=== PATIENT | female | born 1935 | race Caucasian/White ===

== ENCOUNTER 2020-12-02 18:08 | Inpatient (IN) | payer MEDICARE ==
--- NOTE | 2020-12-02 19:29 | EDM.PDOC ---
ED HPI GENERAL MEDICAL PROBLEM - General Chief Complaint: Genitourinary Problem Stated Complaint: FEVER, SHAKING, FATIGUE Time Seen by Provider: 12/02/20 18:50 Source of Information: Reports: Family () History Limitations: Reports: Altered Mental Status (Patient has a baseline of dementia) - History of Present Illness INITIAL COMMENTS - FREE TEXT/NARRATIVE: Marleen is a an 85-year-old female presenting to the ED from the [facility] for evaluation of polyuria, fever, chills, decreased appetite, and low back pain. The patient had labs done at the clinic and her evaluation was found to have a significant leukocytosis at 24.9 with a left shift. Urinalysis was performed and is positive for nitrites and leukocyte esterase with greater than 20-30 WBCs and no red cells. Patient has been febrile with a temperature of 101.3 F. said that she has been having rigors for the last day or so. The clinic called to admit her, however, because of the low back pain, the hospitalist requested that we obtain a CT of the abdomen pelvis without contrast to make sure she does not have an infected ureterolithiasis. Lower Back Pain Score (Numeric/FACES): 3 - Related Data Allergies Allergy/AdvReac Type Severity Reaction Status Date / Time Penicillins Allergy Rash Verified 12/02/20 18:51 Home Meds: Home Meds Acetaminophen [Tylenol Arthritis] 650 mg PO Q6H PRN 12/02/20 [History] Aspirin 81 mg PO DAILY 12/02/20 [History] Levothyroxine Sodium [Synthroid] 75 mcg PO DAILY 12/02/20 [History] Multivit with Calcium,Iron,Min [One Daily Women's] 1 tab PO DAILY 12/02/20 [History] Past Medical History Gastrointestinal History: Reports: GERD Genitourinary History: Reports: UTI, Recurrent Musculoskeletal History: Reports: Other (See Below) Other Musculoskeletal History: multiple compression fractures in back. Neurological History: Reports: Other (See Below) Other Neuro History: increasing dementia Endocrine/Metabolic History: Reports: Hypothyroidism Social & Family History - Tobacco Use Tobacco Use Status *Q: Never Tobacco User - Caffeine Use Caffeine Use: Reports: Coffee - Recreational Drug Use Recreational Drug Use: No ED ROS GENERAL - Review of Systems Review Of Systems: See Below Constitutional: Reports: Fever, Chills, Decreased Appetite HEENT: Reports: No Symptoms Respiratory: Reports: No Symptoms Cardiovascular: Reports: No Symptoms Endocrine: Reports: Fatigue GI/Abdominal: Reports: Abdominal Pain (Right lower quadrant and right flank), Nausea, Stool Incontinence : Reports: Dysuria, Flank Pain, Frequency, Incontinence Musculoskeletal: Reports: Back Pain (Right flank and low back) Skin: Reports: No Symptoms Neurological: Reports: Other (Baseline of dementia) Psychiatric: Reports: No Symptoms Hematologic/Lymphatic: Reports: No Symptoms Immunologic: Reports: No Symptoms ED EXAM, RENAL/ - Physical Exam Exam: See Below Exam Limited By: No Limitations General Appearance: Alert, Anxious, Mild Distress Eye Exam: Bilateral Eye: PERRL Throat/Mouth: Normal Inspection, Normal Oropharynx, No Airway Compromise Head: Atraumatic, Normocephalic Neck: Normal Inspection, Supple Respiratory/Chest: No Respiratory Distress, Lungs Clear, Normal Breath Sounds Cardiovascular: Normal Peripheral Pulses, Regular Rate, Rhythm, No Murmur, Tachy cardia GI/Abdominal: Soft, No Distention, Tender (Right flank and right upper quadrant), Abnormal Bowel Sounds (Absolutely silent bowel sounds). No: Guarding, Rigid, Rebound Extremities: Normal Inspection, No Pedal Edema Neurological: Alert, No Motor/Sensory Deficits, Other (Admission is at the patient's baseline) Psychiatric: Anxious Skin Exam: Mottled Lymphatic: No Adenopathy Course - Vital Signs Last Recorded V/S: Last Vital Signs Temp 38.6 C H 12/02/20 19:11 Pulse 88 12/02/20 19:11 Resp 22 H 12/02/20 19:11 BP 137/62 12/02/20 19:11 Pulse Ox 91 L 12/02/20 19:11 - Orders/Labs/Meds Orders: Active Orders 24 hr Category Date Time Status CULTURE BLOOD [BC] Stat Lab 12/02/20 19:32 Received Sodium Chloride 0.9% [Normal Saline] 1,000 ml Med 12/02/20 21:00 Ordered IV ASDIRECTED cefTRIAXone [Rocephin] 1 gm Med 12/02/20 20:55 Ordered Sodium Chloride 0.9% [Normal Saline] 50 ml IV ONETIME Medication Orders Sodium Chloride (Normal Saline) 1,000 mls @ 999 mls/hr IV ASDIRECTED JET Ceftriaxone Sodium 1 gm/ (Sodium Chloride) 50 mls @ 100 mls/hr IV ONETIME ONE Stop: 12/02/20 21:24 Labs: Laboratory Tests 12/02/20 Range/Units 19:32 Lactic Acid 4.7 H (0.4-2.0) mmol/L Meds: Medications Generic Name Dose Route Start Last Admin Trade Name Valentine PRN Reason Stop Dose Admin Sodium Chloride 1,000 mls @ 999 mls/hr 12/02/20 21:00 Normal Saline IV ASDIRECTED JET Ceftriaxone Sodium 1 gm/ 50 mls @ 100 mls/hr 12/02/20 20:55 Sodium Chloride IV 12/02/20 21:24 ONETIME ONE - Re-Assessments/Exams Free Text/Narrative Re-Assessment/Exam: 12/02/20 21:00 reviewed the labs from the [facility] that were drawn earlier today showing a leukocytosis at 24.9 with a left shift 20.7 neutrophils. Hemoglobin is 12.9 with a hematocrit of 38.9 and a platelet count of 366,000. The comprehensive metabolic panel from the clinic shows a sodium of 132, potassium 4.5, chloride of 101, bicarbonate of 18, anion gap of 13 with a BUN of 16 and a creatinine of 0.95. Glucose is 141 and albumin is 3.3. GFR is calculated at 56. Urinalysis was obtained and is significant for positive nitrites small amount of leukocyte esterase and 20-30 WBCs. She has many bacteria seen. Urine culture is pending from the clinic. In addition to those labs I also added a lactic acid which is elevated at 4.6 consistent with an acute sepsis picture. A blood culture was obtained x1 because the patient is such a difficult stick. We will initiate IV antibiotics with Rocephin 1 g IV. The patient underwent a CT of the abdomen and pelvis without contrast demonstrating gallstones without evidence for acute cholecystitis or choledocholithiasis, bilateral nephrolithiasis without ureterolithiasis, right- sided pyelonephritis with fat stranding into the surrounding tissue and a possible early ileus adjacent to the right kidney. I discussed the case with Dorinda Clement CNP to arrange for admission of the patient. We initiated antibiotics with Rocephin 1 g IV. We will need to check a repeat lactate at 2330 hrs. hours, 4 hours after the first level. We also initiated fluid resuscitation at 30 mL/kg of 1500 mL. Departure - Departure Time of Disposition: 21:09 Disposition: Admitted As Inpatient 68 Clinical Impression: Acute pyelonephritis, Ileus, unspecified Sepsis Qualifiers: Sepsis type: sepsis due to unspecified organism Sepsis acute organ dysfunction status: with acute organ dysfunction Severe sepsis acute organ dysfunction type: unspecified Severe sepsis shock status: without septic shock Qualified Code(s): A41.9 - Sepsis, unspecified organism; R65.20 - Severe sepsis without septic shock Cholelithiasis Qualifiers: Cholelithiasis location: gallbladder Cholecystitis presence: without cholecystitis Biliary obstruction: without biliary obstruction Qualified Code(s): K80.20 - Calculus of gallbladder without cholecystitis without obstruction - Discharge Information Referrals: PCP,None [Primary Care Provider] - Forms: ED Department Discharge Sepsis Event Note (ED) - Evaluation Sepsis Screening Result: Possible Sepsis Risk Current Stage of Sepsis: Sepsis Possible Source of Sepsis: Genitourinary - Focused Exam Sepsis Event Note Statement: Focused Sepsis Exam Completed Vital Signs: Vital Signs Temp Pulse Resp BP Pulse Ox 12/02/20 19:11 38.6 C H 88 22 H 137/62 91 L Capillary Refill, Detail: Less than/Equal to (</=) 2 Seconds Pulse Description: 2+ Normal Peripheral Pulse Location: Radial Skin Exam (Focused Sepsis): Mottling - Problem List & Annotations (1) Acute pyelonephritis SNOMED Code(s): 50993423 Code(s): N10 - ACUTE PYELONEPHRITIS Status: Acute Priority: High Current Visit: Yes (2) Cholelithiasis SNOMED Code(s): 345910743 Code(s): K80.20 - CALCULUS OF GALLBLADDER W/O CHOLECYSTITIS W/O OBSTRUCTION Status: Acute Priority: High Current Visit: Yes Qualifiers: Cholelithiasis location: gallbladder Cholecystitis presence: without cholecystitis Biliary obstruction: without biliary obstruction Qualified Code(s): K80.20 - Calculus of gallbladder without cholecystitis without obstruction (3) Ileus, unspecified SNOMED Code(s): 03807734 Code(s): K56.7 - ILEUS, UNSPECIFIED Status: Acute Priority: High Current Visit: Yes (4) Sepsis SNOMED Code(s): 36233763 Code(s): A41.9 - SEPSIS, UNSPECIFIED ORGANISM Status: Acute Priority: High Current Visit: Yes Qualifiers: Sepsis type: sepsis due to unspecified organism Sepsis acute organ dysfunction status: with acute organ dysfunction Severe sepsis acute organ dysfunction type: unspecified Severe sepsis shock status: without septic shock Qualified Code(s): A41.9 - Sepsis, unspecified organism; R65.20 - Severe sepsis without septic shock - Problem List Review Problem List Initiated/Reviewed/Updated: Yes - My Orders Last 24 Hours: My Active Orders 12/02/20 19:32 CULTURE BLOOD [BC] Stat 12/02/20 20:55 cefTRIAXone [Rocephin] 1 gm Sodium Chloride 0.9% [Normal Saline] 50 ml IV ONETIME 12/02/20 21:00 Sodium Chloride 0.9% [Normal Saline] 1,000 ml IV ASDIRECTED - Assessment/Plan Last 24 Hours: My Active Orders 12/02/20 19:32 CULTURE BLOOD [BC] Stat 12/02/20 20:55 cefTRIAXone [Rocephin] 1 gm Sodium Chloride 0.9% [Normal Saline] 50 ml IV ONETIME 12/02/20 21:00 Sodium Chloride 0.9% [Normal Saline] 1,000 ml IV ASDIRECTED
--- NOTE | 2020-12-02 20:35 | CRLCT ---
For Patients: As a result of the Century Cures Act, medical imaging exams and procedure reports are released immediately into your electronic medical record. You may view this report before your referring provider. If you have questions, please contact your health care provider. INDICATION: Low back pain. Pyuria. TECHNIQUE: Multiple axial images were obtained from the diaphragm to the symphysis pubis without contrast. Sagittal and coronal re-formatted images were obtained. COMPARISON: None. FINDINGS: There is atelectasis in the dependent portion of the lung bases. There is scarring in both lung bases. In the right middle lobe there are 3 pulmonary nodules seen largest measuring 0.3 cm on image #17 of series 2. There is a large hiatal hernia. The liver, spleen, pancreas and adrenal glands are of unremarkable nonenhanced CT appearance. There is a stone in the gallbladder. There is stranding of the fat around the right kidney. There is a punctate stone in the right the kidney. In the left kidney anteriorly there is a 0.3 cm stone. There is no hydronephrosis. There is no stone seen in the ureters. There is a trace amount of free fluid in the right paracolic gutter a there are borderline distended loops of small bowel in the left abdomen with air-fluid level. There are diverticula in the sigmoid colon. There is no evidence of a diverticulitis. The abdominal is normal in caliber. There are atherosclerotic calcifications. There are degenerative changes in the spine. IMPRESSION: 1. Stranding of the fat around the right kidney with a trace amount of fluid in the right paracolic gutter. This could be secondary to a pyelonephritis. 2. Bilateral kidney stones. No ureteral stone or hydronephrosis. 3. Borderline distended loops of small bowel in the left abdomen. An early bowel obstruction or ileus cannot be excluded. 4. Gallstone. Please note that all CT scans at this facility use dose modulation, iterative reconstruction, and/or weight-based dosing when appropriate to reduce radiation dose to as low as reasonably achievable. Dictated by Sammy Flowers MD @ 12/02/2020 8:34:[address] Sammy Flowers @ Dec 02 2020 8:34PM
[2020-12-02] MEDS ORDERED: cefTRIAXone 1 GM in Sodium Chloride 0.9% 50 ML IV ONE (20:55)
[2020-12-02] MEDS ORDERED: Sodium Chloride 0.9% 1,000 ML IV SCH ×3 (21:00→21:45)
[2020-12-02] MEDS ORDERED: Sodium Chloride 0.9% 500 ML IV SCH (21:08)
--- NOTE | 2020-12-02 21:28 | PCM.HP.2 ---
H&P History of Present Illness - General Date of Service: 12/02/20 Source of Information: Family ( gives report of present illness.) History Limitations: Reports: Altered Mental Status (dementia) - History of Present Illness Initial Comments - Free Text/Narative: Copy from LLUVIA RAMIREZ - History of Present Illness INITIAL COMMENTS - FREE TEXT/NARRATIVE: Marleen is a an 85-year-old female presenting to the ED from the [facility] for evaluation of polyuria, fever, chills, decreased appetite, and low back pain. The patient had labs done at the clinic and her evaluation was found to have a significant leukocytosis at 24.9 with a left shift. Urinalysis was performed and is positive for nitrites and leukocyte esterase with greater than 20-30 WBCs and no red cells. Patient has been febrile with a temperature of 101.3 F. said that she has been having rigors for the last day or so. The clinic called to admit her, however, because of the low back pain, the hospitalist requested that we obtain a CT of the abdomen pelvis without contrast to make sure she does not have an infected ureterolithiasis. 12/02/20 21:00 reviewed the labs from the [facility] that were drawn earlier today showing a leukocytosis at 24.9 with a left shift 20.7 neutrophils. Hemoglobin is 12.9 with a hematocrit of 38.9 and a platelet count of 366,000. The comprehensive metabolic panel from the clinic shows a sodium of 132, potassium 4.5, chloride of 101, bicarbonate of 18, anion gap of 13 with a BUN of 16 and a creatinine of 0.95. Glucose is 141 and albumin is 3.3. GFR is calculated at 56. Urinalysis was obtained and is significant for positive nitrites small amount of leukocyte esterase and 20-30 WBCs. She has many bacteria seen. Urine culture is pending from the clinic. In addition to those labs I also added a lactic acid which is elevated at 4.6 consistent with an acute sepsis picture. A blood culture was obtained x1 because the patient is such a difficult stick. We will initiate IV antibiotics with Rocephin 1 g IV. The patient underwent a CT of the abdomen and pelvis without contrast demonstrating gallstones without evidence for acute cholecystitis or choledocholithiasis, bilateral nephrolithiasis without ureterolithiasis, right- sided pyelonephritis with fat stranding into the surrounding tissue and a possible early ileus adjacent to the right kidney. I discussed the case with Dorinda Amador CNP to arrange for admission of the patient. We initiated antibiotics with Rocephin 1 g IV. We will need to check a repeat lactate at 2330 hrs. hours, 4 hours after the first level. We also initiated fluid resuscitation at 30 mL/kg of 1500 mL. Onset of Symptoms: Reports: Gradual Duration of Symptoms: Reports: Day(s):, Getting Worse Location: Reports: Generalized Severity: Moderate Improves with: Reports: None Worsens with: Reports: None Associated Symptoms: Reports: Fever/Chills, Loss of Appetite, Weakness, Other (incontinent of bowel and bladder) Lower Back Pain Score (Numeric/FACES): 3 - Related Data Allergies/Adverse Reactions: Allergies Allergy/AdvReac Type Severity Reaction Status Date / Time Penicillins Allergy Rash Verified 12/02/20 18:51 Home Medications: Home Meds Acetaminophen [Tylenol Arthritis] 650 mg PO Q6H PRN 12/02/20 [History] Aspirin 81 mg PO DAILY 12/02/20 [History] Levothyroxine Sodium [Synthroid] 75 mcg PO DAILY 12/02/20 [History] Multivit with Calcium,Iron,Min [One Daily Women's] 1 tab PO DAILY 12/02/20 [History] Past Medical History Gastrointestinal History: Reports: GERD Genitourinary History: Reports: UTI, Recurrent Musculoskeletal History: Reports: Other (See Below) Other Musculoskeletal History: multiple compression fractures in back. Neurological History: Reports: Other (See Below) Other Neuro History: increasing dementia Endocrine/Metabolic History: Reports: Hypothyroidism Social & Family History - Tobacco Use Tobacco Use Status *Q: Never Tobacco User - Caffeine Use Caffeine Use: Reports: Coffee - Recreational Drug Use Recreational Drug Use: No - Living Situation & Occupation Living situation: Reports: Occupation: Disabled (Lives with Jeff in [place], [place]. [place] is from [place], and they are here on vacation for two weeks to be with family and friends.) H&P Review of Systems - Review of Systems: Review Of Systems: Unable To Obtain (Mrs Waldron is unable to answer question- she refers to to answer any questions.) Reason Not Obtained: severe dementia General: Reports: ROS unobtainable Exam - Exam Exam: See Below - Vital Signs Vital Signs: Last Vital Signs Temp 101.4 F H 12/02/20 19:11 Pulse 88 12/02/20 19:11 Resp 22 H 12/02/20 19:11 BP 137/62 12/02/20 19:11 Pulse Ox 91 L 12/02/20 19:11 Weight: 108 lb - Exam Quality Assessment: DVT Prophylaxis, Other (Covid vaccinated 2020) General: Alert, Cooperative, Other (pleasant, neat and well groomed, elderly female. cooperative. When asked any questions- she said " Dad, am I sick?" "Dad do I have nausea and vomiting") HEENT: PERRLA, Hearing Intact, Mucosa Moist & Leonidas, Nares Patent, Normal Nasal Septum, Posterior Pharynx Clear, Conjunctiva Clear, EOMI, EACs Clear, TMs Clear Neck: Supple, Trachea Midline, 2 Lungs: Clear to Auscultation, Normal Respiratory Effort Cardiovascular: Regular Rate, Regular Rhythm, Normal S1, Normal S2 GI/Abdominal Exam: Soft, Tender (lower abdomen), Abnormal Bowel Sounds (absent bowel sounds.) (Female) Exam: Deferred Rectal (Female) Exam: Deferred Back Exam: Normal Inspection, Full Range of Motion, CVA Tenderness (R), CVA Tenderness (L) Extremities: Normal Inspection, Normal Range of Motion, Non-Tender, No Pedal Edema, Normal Capillary Refill Peripheral Pulses: 2+: Radial (L), Radial (R), Dorsalis Pedis (L), Dorsalis Pedis (R) Skin: Warm, Dry, Intact Neurological: Cranial Nerves Intact, Reflexes Equal Bilateral Neuro Extensive - Mental Status: Alert, Normal Mood/Affect (pleasant and cooperative) Psychiatric: Alert, Normal Affect, Normal Mood - Patient Data Lab Results Last 24 hrs: Laboratory Results - last 24 hr 12/02/20 Range/Units 19:32 Lactic Acid 4.7 H (0.4-2.0) mmol/L Sepsis Event Note - Evaluation Sepsis Screening Result: Possible Sepsis Risk - Focused Exam Vital Signs: Vital Signs Temp Pulse Resp BP Pulse Ox 12/02/20 19:11 101.4 F H 88 22 H 137/62 91 L - Problem List (1) Sepsis SNOMED Code(s): 52752046 ICD Code: A41.9 - SEPSIS, UNSPECIFIED ORGANISM Status: Acute Priority: High Current Visit: Yes Qualifiers: Sepsis type: sepsis due to unspecified organism Sepsis acute organ dysfunction status: with acute organ dysfunction Severe sepsis acute organ d ysfunction type: unspecified Severe sepsis shock status: without septic shock Qualified Code(s): A41.9 - Sepsis, unspecified organism; R65.20 - Severe sepsis without septic shock (2) Acute pyelonephritis SNOMED Code(s): 17884567 ICD Code: N10 - ACUTE PYELONEPHRITIS Status: Acute Priority: High Current Visit: Yes (3) Ileus, unspecified SNOMED Code(s): 97663332 ICD Code: K56.7 - ILEUS, UNSPECIFIED Status: Acute Priority: High Current Visit: Yes (4) Hypothyroidism SNOMED Code(s): 81712887 ICD Code: E03.9 - HYPOTHYROIDISM, UNSPECIFIED Status: Acute Priority: Low Current Visit: Yes Qualifiers: Hypothyroidism type: unspecified Qualified Code(s): E03.9 - Hypothyroidism, unspecified (5) Cholelithiasis SNOMED Code(s): 157124086 ICD Code: K80.20 - CALCULUS OF GALLBLADDER W/O CHOLECYSTITIS W/O OBSTRUCTION Status: Acute Priority: Low Current Visit: Yes Qualifiers: Cholelithiasis location: gallbladder Cholecystitis presence: without cholecystitis Biliary obstruction: without biliary obstruction Qualified Code(s): K80.20 - Calculus of gallbladder without cholecystitis without obstruction (6) Dementia SNOMED Code(s): 12878274 ICD Code: F03.90 - UNSPECIFIED DEMENTIA WITHOUT BEHAVIORAL DISTURBANCE Status: Acute Priority: High Current Visit: Yes Qualifiers: Dementia type: unspecified type Dementia behavioral disturbance: without behavioral disturbance Qualified Code(s): F03.90 - Unspecified dementia without behavioral disturbance Problem List Initiated/Reviewed/Updated: Yes Orders Last 24hrs: Active Orders 24 hr Category Date Time Status COVID-19/FLU A+B/RSV [MOLEC] Stat Lab 12/02/20 21:21 Ordered CULTURE BLOOD [BC] Stat Lab 12/02/20 19:32 Received Sodium Chloride 0.9% [Normal Saline] 1,000 ml Med 12/02/20 21:15 Active IV ASDIRECTED Sodium Chloride 0.9% [Normal Saline] 500 ml Med 12/02/20 21:08 Active IV ASDIRECTED Isolation [COMM] Stat Oth 12/02/20 21:21 Ordered Medication Orders Sodium Chloride (Normal Saline) 1,000 mls @ 999 mls/hr IV ASDIRECTED JET Sodium Chloride (Normal Saline) 500 mls @ 999 mls/hr IV ASDIRECTED JET Assessment/Plan Comment:: Assessment/Plan Comment:: ASSESSMENT AND PLAN OF CARE- PYELONEPHRITIS, SEPSIS, CHOLELITHIASIS, ILEUS,. HYPOTHYROIDISM, DEMENTIA Pyelonephritis with early sepsis- CT Abdomen-Pelvis- shows stranding around the right kidney with bilateral stones. vital signs 101.4-88-22 B/P 137/62 Oxygen sat 91%. she is has bilateral flank pain and low abdominal pain. -IV fluids Normal Saline 125 ml/hr., given 1.5 liters in ER -IV Rocephin 1 gram every 24 hours -lactic acid 4.7, will recheck lactic acid at 2310 today, again in am -CBC, CMP in am Ileus vs Small bowel obstruction-CT scan show early small bowel obstruction versus Ileus. No active nausea, vomiting or acute abdominal pain at this time. -IV fluids- Normal Saline at 125ml/hr -Pain and nausea management -clear liquids diet Dementia- she is at risk for falls and wandering. she is pleasantly confused and relies on her to answer all her questions for her. -bed alarm -monitor and redirect as needed Cholelithiasis -gallstone present- none obstructing stone present -monitor and refer to Surgery Dept follow up as needed Hypothyroidism -continue Synthroid 75 mcg daily -TSH with am labs. Maintenance issues - - DVT prophylaxis - Lovenox 30 mg subcut daily - GI prophylaxis -PPI - IV Protonix 40 mg daily - Nutrition - clear liquids - Dumont catheter -not indicated CODE STATUS -full code Admission justification - this patient will be admitted for inpatient services and is medically appropriate meeting medical necessity for inpatient admission as outlined in my documentation. I reasonably expect the patient will require inpatient services that span a period time over 2 midnights. I reasonably expect this patient to be discharged or transferred within 96 hours [facility]. Disposition -I would anticipate discharge home after the hospital stay Primary care physician - Dr. Mariia Mcdowell, [facility] [place], [place], [place]. Hospitalist- Jeff Abraham M.D. - Mortality Measure Prognosis:: Good - Mortality Measure Prognosis:: Good
[2020-12-02] MEDS ORDERED: Morphine 2 MG/ML SYRINGE IVPUSH PRN (21:31)
[2020-12-02] MEDS ORDERED: Ondansetron 4 MG Tab.DIS PO PRN (21:31)
[2020-12-02] MEDS ORDERED: Bisacodyl 5 MG Tab PO PRN (21:31)
[2020-12-02] MEDS ORDERED: Albuterol 0.083% 2.5 MG/3 ML Neb Soln NEB PRN (21:31)
[2020-12-02] MEDS ORDERED: oxyCODONE 5 MG Tab PO PRN (21:31)
[2020-12-02] MEDS ORDERED: Docusate Sodium 100 MG Cap PO PRN (21:31)
[2020-12-02] MEDS ORDERED: Enoxaparin 30 MG/0.3 ML Syringe SUBCUT SCH (21:45)
[2020-12-02] MEDS: Acetaminophen 325 MG Tab PO PRN (23:05)
[2020-12-03] MEDS: Acetaminophen 325 MG Tab PO PRN ×5 (04:07→21:44)
[2020-12-03] MEDS ORDERED: Levothyroxine 50 MCG Tab PO SCH (07:30)
[2020-12-03] MEDS: Levothyroxine 25 MCG, Levothyroxine 50 MCG PO SCH ×2 (08:01)
[2020-12-03] MEDS ORDERED: Potassium Chloride 20 MEQ Tab.ER PO ONE ×2 (08:15→17:00)
[2020-12-03] MEDS ORDERED: Pantoprazole 40 MG Vial IV SCH (09:00)
[2020-12-03] MEDS ORDERED: Sodium Chloride 0.9% 1,000 ML IV SCH (10:30)
--- NOTE | 2020-12-03 10:32 | PCM.PN ---
- General Info Date of Service: 12/03/20 Subjective Update: Ms. Waldron is an 85-year-old woman who was admitted through the emergency department last night with pyelonephritis and sepsis. Lactic acid level was significantly elevated but has normalized with vigorous IV fluid replacement per sepsis protocol. Blood and urine cultures have been obtained and she was started on IV antibiotic therapy with ceftriaxone. She continues to experience flank pain this morning and is somewhat sleepy and lethargic. She has had recurrent temperature elevations during the night. She is confused with some underlying dementia and unable to provide a meaningful history concerning recent symptoms or review of systems. - Patient Data Vitals - Most Recent: Last Vital Signs Temp 99.1 F 12/03/20 09:49 Pulse 84 12/03/20 06:00 Resp 22 H 12/03/20 07:47 BP 109/65 12/03/20 07:47 Pulse Ox 94 L 12/03/20 07:47 Weight - Most Recent: 104 lb 15.993 oz I&O - Last 24 Hours: Intake & Output 12/02/20 12/03/20 12/03/20 22:59 06:59 14:59 Intake Total 1874 Balance 1874 Lab Results Last 24 Hours: Laboratory Results - last 24 hr 12/02/20 12/02/20 12/02/20 Range/Units 19:32 21:21 21:59 WBC (4.5-11.0) K/uL RBC (3.30-5.50) M/uL Hgb (12.0-15.0) g/dL Hct (36.0-48.0) % MCV (80-98) fL MCH (27-31) pg MCHC (32-36) % Plt Count (150-400) K/uL Neut % (Auto) (36-66) % Lymph % (Auto) (24-44) % Rush % (Auto) (2-6) % Eos % (Auto) (2-4) % Baso % (Auto) (0-1) % Sodium (140-148) mmol/L Potassium (3.6-5.2) mmol/L Chloride (100-108) mmol/L Carbon Dioxide (21-32) mmol/L Anion Gap (5.0-14.0) mmol/L BUN (7-18) mg/dL Creatinine (0.6-1.0) mg/dL Est Cr Clr Drug Dosing mL/min Estimated GFR (MDRD) (>60) Glucose (74-106) mg/dL Lactic Acid 4.7 H (0.4-2.0) mmol/L Calcium (8.5-10.1) mg/dL Total Bilirubin (0.2-1.0) mg/dL AST (15-37) U/L ALT (12-78) U/L Alkaline Phosphatase (46-116) U/L C-Reactive Protein 22.43 H (0.0-0.3) mg/dL Total Protein (6.4-8.2) g/dL Albumin (3.4-5.0) g/dL Globulin (2.3-3.5) g/dL Albumin/Globulin Ratio (1.2-2.2) TSH, Ultra Sensitive (0.358-3.740) uIU/mL SARS-CoV-2 RNA (CÉSAR) Negative (NEGATIVE) 12/02/20 12/02/20 12/03/20 Range/Units 22:18 23:13 05:26 WBC 17.3 H (4.5-11.0) K/uL RBC 3.47 (3.30-5.50) M/uL Hgb 10.9 L (12.0-15.0) g/dL Hct 32.1 L (36.0-48.0) % MCV 93 (80-98) fL MCH 31 (27-31) pg MCHC 34 (32-36) % Plt Count 264 (150-400) K/uL Neut % (Auto) 83.9 H (36-66) % Lymph % (Auto) 4.3 L (24-44) % Rush % (Auto) 11.6 H (2-6) % Eos % (Auto) 0.0 L (2-4) % Baso % (Auto) 0.2 (0-1) % Sodium (140-148) mmol/L Potassium (3.6-5.2) mmol/L Chloride (100-108) mmol/L Carbon Dioxide (21-32) mmol/L Anion Gap (5.0-14.0) mmol/L BUN (7-18) mg/dL Creatinine (0.6-1.0) mg/dL Est Cr Clr Drug Dosing mL/min Estimated GFR (MDRD) (>60) Glucose (74-106) mg/dL Lactic Acid 1.2 (0.4-2.0) mmol/L Calcium (8.5-10.1) mg/dL Total Bilirubin (0.2-1.0) mg/dL AST (15-37) U/L ALT (12-78) U/L Alkaline Phosphatase (46-116) U/L C-Reactive Protein (0.0-0.3) mg/dL Total Protein (6.4-8.2) g/dL Albumin (3.4-5.0) g/dL Globulin (2.3-3.5) g/dL Albumin/Globulin Ratio (1.2-2.2) TSH, Ultra Sensitive 0.105 L (0.358-3.740) uIU/mL SARS-CoV-2 RNA (CÉSAR) (NEGATIVE) 12/03/20 Range/Units 05:26 WBC (4.5-11.0) K/uL RBC (3.30-5.50) M/uL Hgb (12.0-15.0) g/dL Hct (36.0-48.0) % MCV (80-98) fL MCH (27-31) pg MCHC (32-36) % Plt Count (150-400) K/uL Neut % (Auto) (36-66) % Lymph % (Auto) (24-44) % Rush % (Auto) (2-6) % Eos % (Auto) (2-4) % Baso % (Auto) (0-1) % Sodium 136 L (140-148) mmol/L Potassium 3.5 L (3.6-5.2) mmol/L Chloride 102 (100-108) mmol/L Carbon Dioxide 20 L (21-32) mmol/L Anion Gap 17.5 H (5.0-14.0) mmol/L BUN 15 (7-18) mg/dL Creatinine 0.9 (0.6-1.0) mg/dL Est Cr Clr Drug Dosing 35.61 mL/min Estimated GFR (MDRD) 60 (>60) Glucose 121 H (74-106) mg/dL Lactic Acid (0.4-2.0) mmol/L Calcium 7.9 L (8.5-10.1) mg/dL Total Bilirubin 0.6 (0.2-1.0) mg/dL AST 55 H (15-37) U/L ALT 35 (12-78) U/L Alkaline Phosphatase 86 (46-116) U/L C-Reactive Protein (0.0-0.3) mg/dL Total Protein 5.6 L (6.4-8.2) g/dL Albumin 2.2 L (3.4-5.0) g/dL Globulin 3.4 (2.3-3.5) g/dL Albumin/Globulin Ratio 0.7 L (1.2-2.2) TSH, Ultra Sensitive (0.358-3.740) uIU/mL SARS-CoV-2 RNA (CÉSAR) (NEGATIVE) Anirudh Results Last 24 Hours: Microbiology 12/02/20 19:32 Aerobic Blood Culture - Preliminary Blood - Arm, Right Med Orders - Current: Current Medications Acetaminophen (Acetaminophen 325 Mg Tab) 650 mg PO Q4H PRN PRN Reason: Pain (Mild 1-3)/fever Last Admin: 12/03/20 09:49 Dose: 650 mg Documented by: Albuterol (Albuterol 0.083% 2.5 Mg/3 Ml Neb Soln) 2.5 mg NEB Q4H PRN PRN Reason: Shortness Of Breath/wheezing Bisacodyl (Bisacodyl 5 Mg Tab) 5 mg PO DAILY PRN PRN Reason: Constipation Docusate Sodium (Docusate Sodium 100 Mg Cap) 100 mg PO BID PRN PRN Reason: Constipation Enoxaparin Sodium (Enoxaparin 30 Mg/0.3 Ml Syringe) 30 mg SUBCUT BEDTIME [facility] Ceftriaxone Sodium 1 gm/ (Sodium Chloride) 50 mls @ 100 mls/hr IV Q24H [facility] Sodium Chloride (Normal Saline) 1,000 mls @ 50 mls/hr IV ASDIRECTED [facility] Levothyroxine Sodium 25 mcg/ (Levothyroxine Sodium 50 mcg) 75 mcg PO ACBREAKFAST JET Last Admin: 12/03/20 08:01 Dose: 75 mcg Documented by: Morphine Sulfate (Morphine 2 Mg/Ml Syringe) 2 mg IVPUSH Q2H PRN PRN Reason: Pain (severe 7-10) Ondansetron HCl (Ondansetron 4 Mg Tab.Dis) 4 mg PO Q6H PRN PRN Reason: Nausea able to take PO Oxycodone HCl (Oxycodone 5 Mg Tab) 5 mg PO Q4H PRN PRN Reason: Pain (moderate 4-6) Potassium Chloride (Potassium Chloride 20 Meq Tab.Er) 40 meq PO ONETIME ONE Stop: 12/03/20 17:01 Discontinued Medications Enoxaparin Sodium (Enoxaparin 30 Mg/0.3 Ml Syringe) 30 mg SUBCUT DAILY [facility] Last Admin: 12/02/20 23:14 Dose: 30 mg Documented by: Sodium Chloride (Normal Saline) 1,000 mls @ 999 mls/hr IV ASDIRECTED [facility] Ceftriaxone Sodium 1 gm/ (Sodium Chloride) 50 mls @ 100 mls/hr IV ONETIME ONE Stop: 12/02/20 21:24 Last Admin: 12/02/20 22:17 Dose: 100 mls/hr Documented by: Sodium Chloride (Normal Saline) 1,000 mls @ 999 mls/hr IV ASDIRECTED [facility] Last Admin: 12/02/20 22:13 Dose: 999 mls/hr Documented by: Sodium Chloride (Normal Saline) 500 mls @ 999 mls/hr IV ASDIRECTED [facility] Sodium Chloride (Normal Saline) 1,000 mls @ 125 mls/hr IV ASDIRECTED [facility] Last Admin: 12/02/20 23:48 Dose: 125 mls/hr Documented by: Pantoprazole Sodium (Pantoprazole 40 Mg Vial) 40 mg IV DAILY [facility] Last Admin: 12/03/20 08:02 Dose: 40 mg Documented by: Potassium Chloride (Potassium Chloride 20 Meq Tab.Er) 40 meq PO ONETIME ONE Stop: 12/03/20 08:16 Last Admin: 12/03/20 09:49 Dose: 40 meq Documented by: - Exam Quality Assessment: DVT Prophylaxis General: Mild Distress, Lethargic Lungs: Clear to Auscultation, Normal Respiratory Effort Cardiovascular: Regular Rate, Regular Rhythm, Murmurs GI/Abdominal Exam: Soft, Non-Tender, No Organomegaly, No Distention Back Exam: Normal Inspection, CVA Tenderness (L) Extremities: Non-Tender, No Pedal Edema - Patient Data Lab Results Last 24 hrs: Laboratory Results - last 24 hr 12/02/20 12/02/20 12/02/20 Range/Units 19:32 21:21 21:59 WBC (4.5-11.0) K/uL RBC (3.30-5.50) M/uL Hgb (12.0-15.0) g/dL Hct (36.0-48.0) % MCV (80-98) fL MCH (27-31) pg MCHC (32-36) % Plt Count (150-400) K/uL Neut % (Auto) (36-66) % Lymph % (Auto) (24-44) % Rush % (Auto) (2-6) % Eos % (Auto) (2-4) % Baso % (Auto) (0-1) % Sodium (140-148) mmol/L Potassium (3.6-5.2) mmol/L Chloride (100-108) mmol/L Carbon Dioxide (21-32) mmol/L Anion Gap (5.0-14.0) mmol/L BUN (7-18) mg/dL Creatinine (0.6-1.0) mg/dL Est Cr Clr Drug Dosing mL/min Estimated GFR (MDRD) (>60) Glucose (74-106) mg/dL Lactic Acid 4.7 H (0.4-2.0) mmol/L Calcium (8.5-10.1) mg/dL Total Bilirubin (0.2-1.0) mg/dL AST (15-37) U/L ALT (12-78) U/L Alkaline Phosphatase (46-116) U/L C-Reactive Protein 22.43 H (0.0-0.3) mg/dL Total Protein (6.4-8.2) g/dL Albumin (3.4-5.0) g/dL Globulin (2.3-3.5) g/dL Albumin/Globulin Ratio (1.2-2.2) TSH, Ultra Sensitive (0.358-3.740) uIU/mL SARS-CoV-2 RNA (CÉSAR) Negative (NEGATIVE) 12/02/20 12/02/20 12/03/20 Range/Units 22:18 23:13 05:26 WBC 17.3 H (4.5-11.0) K/uL RBC 3.47 (3.30-5.50) M/uL Hgb 10.9 L (12.0-15.0) g/dL Hct 32.1 L (36.0-48.0) % MCV 93 (80-98) fL MCH 31 (27-31) pg MCHC 34 (32-36) % Plt Count 264 (150-400) K/uL Neut % (Auto) 83.9 H (36-66) % Lymph % (Auto) 4.3 L (24-44) % Rush % (Auto) 11.6 H (2-6) % Eos % (Auto) 0.0 L (2-4) % Baso % (Auto) 0.2 (0-1) % Sodium (140-148) mmol/L Potassium (3.6-5.2) mmol/L Chloride (100-108) mmol/L Carbon Dioxide (21-32) mmol/L Anion Gap (5.0-14.0) mmol/L BUN (7-18) mg/dL Creatinine (0.6-1.0) mg/dL Est Cr Clr Drug Dosing mL/min Estimated GFR (MDRD) (>60) Glucose (74-106) mg/dL Lactic Acid 1.2 (0.4-2.0) mmol/L Calcium (8.5-10.1) mg/dL Total Bilirubin (0.2-1.0) mg/dL AST (15-37) U/L ALT (12-78) U/L Alkaline Phosphatase (46-116) U/L C-Reactive Protein (0.0-0.3) mg/dL Total Protein (6.4-8.2) g/dL Albumin (3.4-5.0) g/dL Globulin (2.3-3.5) g/dL Albumin/Globulin Ratio (1.2-2.2) TSH, Ultra Sensitive 0.105 L (0.358-3.740) uIU/mL SARS-CoV-2 RNA (CÉSAR) (NEGATIVE) 12/03/20 Range/Units 05:26 WBC (4.5-11.0) K/uL RBC (3.30-5.50) M/uL Hgb (12.0-15.0) g/dL Hct (36.0-48.0) % MCV (80-98) fL MCH (27-31) pg MCHC (32-36) % Plt Count (150-400) K/uL Neut % (Auto) (36-66) % Lymph % (Auto) (24-44) % Rush % (Auto) (2-6) % Eos % (Auto) (2-4) % Baso % (Auto) (0-1) % Sodium 136 L (140-148) mmol/L Potassium 3.5 L (3.6-5.2) mmol/L Chloride 102 (100-108) mmol/L Carbon Dioxide 20 L (21-32) mmol/L Anion Gap 17.5 H (5.0-14.0) mmol/L BUN 15 (7-18) mg/dL Creatinine 0.9 (0.6-1.0) mg/dL Est Cr Clr Drug Dosing 35.61 mL/min Estimated GFR (MDRD) 60 (>60) Glucose 121 H (74-106) mg/dL Lactic Acid (0.4-2.0) mmol/L Calcium 7.9 L (8.5-10.1) mg/dL Total Bilirubin 0.6 (0.2-1.0) mg/dL AST 55 H (15-37) U/L ALT 35 (12-78) U/L Alkaline Phosphatase 86 (46-116) U/L C-Reactive Protein (0.0-0.3) mg/dL Total Protein 5.6 L (6.4-8.2) g/dL Albumin 2.2 L (3.4-5.0) g/dL Globulin 3.4 (2.3-3.5) g/dL Albumin/Globulin Ratio 0.7 L (1.2-2.2) TSH, Ultra Sensitive (0.358-3.740) uIU/mL SARS-CoV-2 RNA (CÉSAR) (NEGATIVE) Result Diagrams: 12/03/20 05:26 12/03/20 05:26 Anirudh Results Last 24 hrs: Microbiology 12/02/20 19:32 Aerobic Blood Culture - Preliminary Blood - Arm, Right Sepsis Event Note - Evaluation Sepsis Screening Result: Severe Sepsis Risk - Focused Exam Vital Signs: Vital Signs Temp Temp Pulse Resp BP Pulse Ox 12/03/20 09:49 99.1 F 12/03/20 07:47 97 F 22 H 109/65 94 L 12/03/20 06:00 98.7 F 84 28 H 113/60 95 12/03/20 04:37 97.8 F 12/03/20 04:07 101.8 F H 12/03/20 04:00 101.8 F H 92 16 159/84 H 95 12/03/20 02:00 98.7 F 82 30 H 120/58 L 96 12/03/20 00:00 97 25 H 113/53 L 94 L 12/02/20 23:35 99.2 F 12/02/20 23:30 90 L 12/02/20 23:19 101.0 F H 94 30 H 139/61 90 L 12/02/20 23:05 101.0 F H - Problem List Review Problem List Initiated/Reviewed/Updated: Yes - My Orders Last 24 Hours: My Active Orders 12/03/20 10:30 Sodium Chloride 0.9% @ 50 MLS/HR(1000ml) Sodium Chloride 0.9% [Normal Saline] 1,000 ml IV ASDIRECTED 12/03/20 17:00 Potassium Chloride [Klor-Con M20] 40 meq PO ONETIME ONE 12/04/20 05:00 BASIC METABOLIC PANEL,BMP [CHEM] Timed CBC WITH AUTO DIFF [HEME] Timed MAGNESIUM [CHEM] Timed - Plan Plan:: ASSESSMENT AND PLAN Pyelonephritis with early sepsis- CT Abdomen-Pelvis- shows stranding around the right kidney with bilateral stones. She has received fluid replacement per sepsis protocol and has been started on IV antibiotic therapy. Vital signs are stable and sepsis appears to have resolved, cultures pending -IV fluids Normal Saline 50 mL/h -IV Rocephin 1 gram every 24 hours -Blood and urine cultures pending Ileus vs Small bowel obstruction-CT scan show early small bowel obstruction versus Ileus. No active nausea, vomiting or acute abdominal pain at this time. -IV fluids -Pain and nausea management -clear liquids diet Dementia- she is at risk for falls and wandering. she is pleasantly confused and relies on her to answer all her questions for her. -bed alarm -monitor and redirect as needed Cholelithiasis -gallstone present- none obstructing stone present -monitor and refer to Surgery Dept follow up as needed Hypothyroidism -continue Synthroid 75 mcg daily -TSH with am labs. Maintenance issues - - DVT prophylaxis - Lovenox 30 mg subcut daily - GI prophylaxis -not indicated - Nutrition - clear liquids - Dumont catheter -not indicated CODE STATUS -full code Admission justification - this patient will be admitted for inpatient services and is medically appropriate meeting medical necessity for inpatient admission as outlined in my documentation. I reasonably expect the patient will require inpatient services that span a period time over 2 midnights. I reasonably expect this patient to be discharged or transferred within 96 hours after admission to the [facility]. Disposition -I would anticipate discharge home after the hospital stay Primary care physician - Dr. Mariia Mcdowell, [facility], [place], [place]. Hospitalist- Jeff Abraham M.D.
[2020-12-03] MEDS: Enoxaparin 30 MG/0.3 ML Syringe SUBCUT SCH (21:04)
[2020-12-03] MEDS: cefTRIAXone 1 GM in Sodium Chloride 0.9% 50 ML IV SCH (21:05)
[2020-12-03] MEDS ORDERED: cefTRIAXone 1 GM in Sodium Chloride 0.9% 50 ML IV SCH (21:10)
[2020-12-04] MEDS: Levothyroxine 25 MCG, Levothyroxine 50 MCG PO SCH ×2 (08:13)
--- NOTE | 2020-12-04 12:27 | PCM.PN ---
- General Info Date of Service: 12/04/20 Subjective Update: Ms. Waldron has been stable over the last 24 hours. She is more alert and interactive although still confused. Vital signs have been stable and she has been afebrile, white blood cell count almost within normal range. She is unable to provide meaningful information concerning symptoms or review of systems because of her dementia with confusion. - Patient Data Vitals - Most Recent: Last Vital Signs Temp 98.3 F 12/04/20 08:00 Pulse 72 12/04/20 06:00 Resp 16 12/04/20 08:00 BP 144/84 H 12/04/20 08:00 Pulse Ox 94 L 12/04/20 08:00 Weight - Most Recent: 104 lb 15.993 oz I&O - Last 24 Hours: Intake & Output 12/03/20 12/04/20 12/04/20 22:59 06:59 14:59 Intake Total 1320 1460 Balance 1320 1460 Lab Results Last 24 Hours: Laboratory Results - last 24 hr 12/04/20 12/04/20 12/04/20 Range/Units 04:10 04:10 04:10 WBC 11.9 H (4.5-11.0) K/uL RBC 3.48 (3.30-5.50) M/uL Hgb 10.8 L (12.0-15.0) g/dL Hct 33.0 L (36.0-48.0) % MCV 95 (80-98) fL MCH 31 (27-31) pg MCHC 33 (32-36) % Plt Count 264 (150-400) K/uL Neut % (Auto) 83.3 H (36-66) % Lymph % (Auto) 6.2 L (24-44) % [place] % (Auto) 9.6 H (2-6) % Eos % (Auto) 0.7 L (2-4) % Baso % (Auto) 0.2 (0-1) % Sodium 137 L (140-148) mmol/L Potassium 4.6 (3.6-5.2) mmol/L Chloride 105 (100-108) mmol/L Carbon Dioxide 19 L (21-32) mmol/L Anion Gap 17.6 H (5.0-14.0) mmol/L BUN 14 (7-18) mg/dL Creatinine 0.9 (0.6-1.0) mg/dL Est Cr Clr Drug Dosing 35.61 mL/min Estimated GFR (MDRD) 60 (>60) Glucose 92 (74-106) mg/dL Lactic Acid 0.9 (0.4-2.0) mmol/L Calcium 8.2 L (8.5-10.1) mg/dL Magnesium 1.8 (1.8-2.4) mg/dL Anirudh Results Last 24 Hours: Microbiology 12/02/20 19:32 Aerobic Blood Culture - Preliminary Blood - Arm, Right Anaerobic Blood Culture - Preliminary NO GROWTH AFTER 1 DAY Med Orders - Current: Current Medications Acetaminophen (Acetaminophen 325 Mg Tab) 650 mg PO Q4H PRN PRN Reason: Pain (Mild 1-3)/fever Last Admin: 12/03/20 21:44 Dose: 650 mg Documented by: Albuterol (Albuterol 0.083% 2.5 Mg/3 Ml Neb Soln) 2.5 mg NEB Q4H PRN PRN Reason: Shortness Of Breath/wheezing Bisacodyl (Bisacodyl 5 Mg Tab) 5 mg PO DAILY PRN PRN Reason: Constipation Docusate Sodium (Docusate Sodium 100 Mg Cap) 100 mg PO BID PRN PRN Reason: Constipation Enoxaparin Sodium (Enoxaparin 30 Mg/0.3 Ml Syringe) 30 mg SUBCUT BEDTIME [facility] Last Admin: 12/03/20 21:04 Dose: 30 mg Documented by: Ceftriaxone Sodium 1 gm/ (Sodium Chloride) 50 mls @ 100 mls/hr IV Q24H [facility] Last Admin: 12/03/20 21:05 Dose: 100 mls/hr Documented by: Levothyroxine Sodium 25 mcg/ (Levothyroxine Sodium 50 mcg) 75 mcg PO ACBR EAKFAST [facility] Last Admin: 12/04/20 08:13 Dose: 75 mcg Documented by: Morphine Sulfate (Morphine 2 Mg/Ml Syringe) 2 mg IVPUSH Q2H PRN PRN Reason: Pain (severe 7-10) Ondansetron HCl (Ondansetron 4 Mg Tab.Dis) 4 mg PO Q6H PRN PRN Reason: Nausea able to take PO Oxycodone HCl (Oxycodone 5 Mg Tab) 5 mg PO Q4H PRN PRN Reason: Pain (moderate 4-6) Discontinued Medications Enoxaparin Sodium (Enoxaparin 30 Mg/0.3 Ml Syringe) 30 mg SUBCUT DAILY [facility] Last Admin: 12/02/20 23:14 Dose: 30 mg Documented by: Sodium Chloride (Normal Saline) 1,000 mls @ 999 mls/hr IV ASDIRECTED [facility] Ceftriaxone Sodium 1 gm/ (Sodium Chloride) 50 mls @ 100 mls/hr IV ONETIME ONE Stop: 12/02/20 21:24 Last Admin: 12/02/20 22:17 Dose: 100 mls/hr Documented by: Sodium Chloride (Normal Saline) 1,000 mls @ 999 mls/hr IV ASDIRECTED [facility] Last Admin: 12/02/20 22:13 Dose: 999 mls/hr Documented by: Sodium Chloride (Normal Saline) 500 mls @ 999 mls/hr IV ASDIRECTED [facility] Sodium Chloride (Normal Saline) 1,000 mls @ 125 mls/hr IV ASDIRECTED [facility] Last Admin: 12/02/20 23:48 Dose: 125 mls/hr Documented by: Sodium Chloride (Normal Saline) 1,000 mls @ 50 mls/hr IV ASDIRECTED [facility] Last Admin: 12/03/20 21:44 Dose: 50 mls/hr Documented by: Pantoprazole Sodium (Pantoprazole 40 Mg Vial) 40 mg IV DAILY [facility] Last Admin: 12/03/20 08:02 Dose: 40 mg Documented by: Potassium Chloride (Potassium Chloride 20 Meq Tab.Er) 40 meq PO ONETIME ONE Stop: 12/03/20 08:16 Last Admin: 12/03/20 09:49 Dose: 40 meq Documented by: Potassium Chloride (Potassium Chloride 20 Meq Tab.Er) 40 meq PO ONETIME ONE Stop: 12/03/20 17:01 Last Admin: 12/03/20 18:00 Dose: 40 meq Documented by: - Exam Quality Assessment: DVT Prophylaxis General: Alert, Cooperative, No Acute Distress. No: Oriented Lungs: Clear to Auscultation, Normal Respiratory Effort Cardiovascular: Regular Rate, Regular Rhythm, No Murmurs GI/Abdominal Exam: Soft, Non-Tender, No Organomegaly, No Distention Extremities: Non-Tender, No Pedal Edema - Patient Data Lab Results Last 24 hrs: Laboratory Results - last 24 hr 12/04/20 12/04/20 12/04/20 Range/Units 04:10 04:10 04:10 WBC 11.9 H (4.5-11.0) K/uL RBC 3.48 (3.30-5.50) M/uL Hgb 10.8 L (12.0-15.0) g/dL Hct 33.0 L (36.0-48.0) % MCV 95 (80-98) fL MCH 31 (27-31) pg MCHC 33 (32-36) % Plt Count 264 (150-400) K/uL Neut % (Auto) 83.3 H (36-66) % Lymph % (Auto) 6.2 L (24-44) % [place] % (Auto) 9.6 H (2-6) % Eos % (Auto) 0.7 L (2-4) % Baso % (Auto) 0.2 (0-1) % Sodium 137 L (140-148) mmol/L Potassium 4.6 (3.6-5.2) mmol/L Chloride 105 (100-108) mmol/L Carbon Dioxide 19 L (21-32) mmol/L Anion Gap 17.6 H (5.0-14.0) mmol/L BUN 14 (7-18) mg/dL Creatinine 0.9 (0.6-1.0) mg/dL Est Cr Clr Drug Dosing 35.61 mL/min Estimated GFR (MDRD) 60 (>60) Glucose 92 (74-106) mg/dL Lactic Acid 0.9 (0.4-2.0) mmol/L Calcium 8.2 L (8.5-10.1) mg/dL Magnesium 1.8 (1.8-2.4) mg/dL Result Diagrams: 12/04/20 04:10 12/04/20 04:10 Anirudh Results Last 24 hrs: Microbiology 12/02/20 19:32 Aerobic Blood Culture - Preliminary Blood - Arm, Right Anaerobic Blood Culture - Preliminary NO GROWTH AFTER 1 DAY Sepsis Event Note - Evaluation Sepsis Screening Result: No Definite Risk - Focused Exam Vital Signs: Vital Signs Temp Pulse Resp BP Pulse Ox 12/04/20 08:00 98.3 F 16 144/84 H 94 L 12/04/20 06:00 72 29 H 152/80 H 12/04/20 04:00 97.4 F 74 27 H 138/75 95 12/04/20 02:00 97.6 F 67 24 H 121/91 H 96 12/04/20 00:52 98 - Problem List Review Problem List Initiated/Reviewed/Updated: Yes - My Orders Last 24 Hours: My Active Orders 12/04/20 12:04 Convert IV to Saline Lock [OM.PC] Routine 12/05/20 05:00 BASIC METABOLIC PANEL,BMP [CHEM] Timed CBC WITH AUTO DIFF [HEME] Timed - Plan Plan:: ASSESSMENT AND PLAN Pyelonephritis with early sepsis-improved since admission, currently afebrile for 24 hours, white blood cell count almost within normal range -Saline lock IV -IV Rocephin 1 gram every 24 hours -Blood and urine cultures pending Ileus vs Small bowel obstruction-CT scan show early small bowel obstruction versus Ileus. No active nausea, vomiting or acute abdominal pain at this time. -Pain and nausea management Dementia- she is at risk for falls and wandering. she is pleasantly confused and relies on her to answer all her questions for her. -bed alarm -monitor and redirect as needed Cholelithiasis -gallstone present- none obstructing stone present -monitor and refer to Surgery Dept follow up as needed Hypothyroidism -continue Synthroid 75 mcg daily -TSH with am labs. Maintenance issues - - DVT prophylaxis - Lovenox 30 mg subcut daily - GI prophylaxis -not indicated - Nutrition -regular diet - Dumont catheter -not indicated CODE STATUS -full code Admission justification - this patient will be admitted for inpatient services and is medically appropriate meeting medical necessity for inpatient admission as outlined in my documentation. I reasonably expect the patient will require inpatient services that span a period time over 2 midnights. I reasonably expect this patient to be discharged or transferred within 96 hours [facility]. Disposition -I would anticipate discharge home after the hospital stay Primary care physician - Dr. Mariia Mcdowell, [facility], [place], [place]. Hospitalist- Jeff Abraham M.D.
[2020-12-04] MEDS ORDERED: Haloperidol Lactate 5 MG/ML SDV ONE (16:01)
[2020-12-04] MEDS: Haloperidol Lactate 5 MG/ML SDV IVPUSH PRN ×2 (16:13→20:06)
[2020-12-04] MEDS: Enoxaparin 30 MG/0.3 ML Syringe SUBCUT SCH (20:06)
[2020-12-04] MEDS: cefTRIAXone 1 GM in Sodium Chloride 0.9% 50 ML IV SCH (20:41)
[2020-12-05] MEDS: Levothyroxine 25 MCG, Levothyroxine 50 MCG PO SCH ×2 (08:58)
--- NOTE | 2020-12-05 09:11 | PCM.DCSUM1 ---
Discharge Summary - Hospital Course Brief History: Ms. Waldron is an 85-year-old woman who was admitted through the emergency department with weakness, fever, confusion, secondary to underlying pyelonephritis and dementia. - Discharge Data Discharge Date: 12/05/20 Discharge Disposition: Home, Self-Care 01 Condition: Stable - Referral to Home Health Primary Care Physician: PCP None - Discharge Diagnosis/Problem(s) (1) Acute pyelonephritis SNOMED Code(s): 69295761 ICD Code: N10 - ACUTE PYELONEPHRITIS Status: Acute Priority: High Current Visit: Yes (2) Sepsis SNOMED Code(s): 26558196 ICD Code: A41.9 - SEPSIS, UNSPECIFIED ORGANISM Status: Acute Priority: High Current Visit: Yes Qualifiers: Sepsis type: sepsis due to unspecified organism Sepsis acute organ dysfunction status: with acute organ dysfunction Severe sepsis acute organ dysfunction type: unspecified Severe sepsis shock status: without septic shock Qualified Code(s): A41.9 - Sepsis, unspecified organism; R65.20 - Severe sepsis without septic shock (3) Dementia SNOMED Code(s): 83026111 ICD Code: F03.90 - UNSPECIFIED DEMENTIA WITHOUT BEHAVIORAL DISTURBANCE Status: Acute Priority: High Current Visit: Yes Qualifiers: Dementia type: unspecified type Dementia behavioral disturbance: without behavioral disturbance Qualified Code(s): F03.90 - Unspecified dementia without behavioral disturbance - Patient Summary/Data Hospital Course: Ms. Waldron is a an 85-year-old female presenting to the ED from the [facility] for evaluation of polyuria, fever, chills, decreased appetite, and low back pain. The patient had labs done at the clinic and her evaluation was found to have a significant leukocytosis at 24.9 with a left shift. Urinalysis was performed and is positive for nitrites and leukocyte esterase with greater than 20-30 WBCs and no red cells. Patient has been febrile with a temperature of 101.3 F. said that she has been having rigors for the last day or so. The clinic called to admit her, however, because of the low back pain, the hospitalist requested that we obtain a CT of the abdomen pelvis without contrast to make sure she does not have an infected ureterolithiasis. Urinalysis was obtained and is significant for positive nitrites small amount of leukocyte esterase and 20-30 WBCs. She has many bacteria seen. Urine culture is pending from the clinic. In addition to those labs lactic acid which is elevated at 4.6 consistent with an acute sepsis picture. A blood culture was obtained x1 because the patient is such a difficult stick. We will initiate IV antibiotics with Rocephin 1 g IV. The patient underwent a CT of the abdomen and pelvis without contrast demonstrating gallstones without evidence for acute cholecystitis or choledocholithiasis, bilateral nephrolithiasis without ureterolithiasis, right-sided pyelonephritis with fat stranding into the surrounding tissue and a possible early ileus adjacent to the right kidney. While in the emergency department she did receive IV fluids per sepsis protocol, cultures were obtained as above, and she was started on IV antibiotic therapy. By the following morning she had stabilized, but remains confused because of her underlying dementia. Blood culture did grow out pansensitive E. coli. She has been stable and afebrile for the past 48 hours and will be discharged home on oral antibiotic therapy with ciprofloxacin 500 mg twice daily for an additional 7 days because of the positive blood culture. Activity will be as tolerated and she will resume her usual diet. Follow-up appointment will be scheduled with her primary care provider within 1 week. - Patient Instructions Diet: Usual Diet as Tolerated Activity: As Tolerated Other/Special Instructions: Please schedule follow-up appointment with primary care provider within 1 week. - Discharge Plan *PRESCRIPTION DRUG MONITORING PROGRAM REVIEWED*: Not Applicable *COPY OF PRESCRIPTION DRUG MONITORING REPORT IN PATIENT KLARISSA: Not Applicable Prescriptions/Med Rec: Ciprofloxacin [Ciprofloxacin HCl] 500 mg PO BID #14 tab Home Medications: Home Meds Acetaminophen [Tylenol Arthritis] 650 mg PO Q6H PRN 12/02/20 [History] Aspirin 81 mg PO DAILY 12/02/20 [History] Levothyroxine Sodium [Synthroid] 75 mcg PO DAILY 12/02/20 [History] Multivit with Calcium,Iron,Min [One Daily Women's] 1 tab PO DAILY 12/02/20 [History] Ciprofloxacin [Ciprofloxacin HCl] 500 mg PO BID #14 tab 12/05/20 [Rx] Patient Handouts: Pyelonephritis, Adult, [id number] - Discharge Summary/Plan Comment DC Time >30 min.: No - Patient Data Vitals - Most Recent: Last Vital Signs Temp 97.6 F 12/05/20 08:00 Pulse 70 12/05/20 08:00 Resp 12 12/05/20 08:00 BP 141/66 H 12/05/20 08:00 Pulse Ox 98 12/05/20 08:00 Weight - Most Recent: 104 lb 15.993 oz I&O - Last 24 hours: Intake & Output 12/04/20 12/05/20 12/05/20 22:59 06:59 14:59 Intake Total 50 240 120 Balance 50 240 120 Lab Results - Last 24 hrs: Laboratory Results - last 24 hr 12/05/20 12/05/20 Range/Units 05:00 05:00 WBC 9.2 (4.5-11.0) K/uL RBC 3.57 (3.30-5.50) M/uL Hgb 10.9 L (12.0-15.0) g/dL Hct 33.4 L (36.0-48.0) % MCV 94 (80-98) fL MCH 31 (27-31) pg MCHC 33 (32-36) % Plt Count 295 (150-400) K/uL Neut % (Auto) 68.3 H (36-66) % Lymph % (Auto) 13.8 L (24-44) % Toole % (Auto) 15.8 H (2-6) % Eos % (Auto) 1.7 L (2-4) % Baso % (Auto) 0.4 (0-1) % Sodium 138 L (140-148) mmol/L Potassium 3.6 (3.6-5.2) mmol/L Chloride 104 (100-108) mmol/L Carbon Dioxide 19 L (21-32) mmol/L Anion Gap 18.6 H (5.0-14.0) mmol/L BUN 12 (7-18) mg/dL Creatinine 0.9 (0.6-1.0) mg/dL Est Cr Clr Drug Dosing 35.61 mL/min Estimated GFR (MDRD) 60 (>60) Glucose 83 (74-106) mg/dL Calcium 8.5 (8.5-10.1) mg/dL LUIS ANGEL Results - Last 24 hrs: Microbiology 12/02/20 19:32 Aerobic Blood Culture - Final Blood - Arm, Right Escherichia Coli Anaerobic Blood Culture - Final Not Reportable Med Orders - Current: Current Medications Acetaminophen (Acetaminophen 325 Mg Tab) 650 mg PO Q4H PRN PRN Reason: Pain (Mild 1-3)/fever Last Admin: 12/03/20 21:44 Dose: 650 mg Documented by: Albuterol (Albuterol 0.083% 2.5 Mg/3 Ml Neb Soln) 2.5 mg NEB Q4H PRN PRN Reason: Shortness Of Breath/wheezing Bisacodyl (Bisacodyl 5 Mg Tab) 5 mg PO DAILY PRN PRN Reason: Constipation Docusate Sodium (Docusate Sodium 100 Mg Cap) 100 mg PO BID PRN PRN Reason: Constipation Enoxaparin Sodium (Enoxaparin 30 Mg/0.3 Ml Syringe) 30 mg SUBCUT BEDTIME [facility] Last Admin: 12/04/20 20:06 Dose: 30 mg Documented by: Haloperidol Lactate (Haloperidol Lactate 5 Mg/Ml Sdv) 1 mg IVPUSH Q2H PRN PRN Reason: Agitation Last Admin: 12/04/20 20:06 Dose: 1 mg Documented by: Ceftriaxone Sodium 1 gm/ (Sodium Chloride) 50 mls @ 100 mls/hr IV Q24H [facility] Last Admin: 12/04/20 20:41 Dose: 100 mls/hr Documented by: Levothyroxine Sodium 25 mcg/ (Levothyroxine Sodium 50 mcg) 75 mcg PO ACBREA KFAST [facility] Last Admin: 12/05/20 08:58 Dose: 75 mcg Documented by: Morphine Sulfate (Morphine 2 Mg/Ml Syringe) 2 mg IVPUSH Q2H PRN PRN Reason: Pain (severe 7-10) Ondansetron HCl (Ondansetron 4 Mg Tab.Dis) 4 mg PO Q6H PRN PRN Reason: Nausea able to take PO Oxycodone HCl (Oxycodone 5 Mg Tab) 5 mg PO Q4H PRN PRN Reason: Pain (moderate 4-6) Discontinued Medications Enoxaparin Sodium (Enoxaparin 30 Mg/0.3 Ml Syringe) 30 mg SUBCUT DAILY [facility] Last Admin: 12/02/20 23:14 Dose: 30 mg Documented by: Haloperidol Lactate (Haloperidol Lactate 5 Mg/Ml Sdv) Confirm Administered Dose 5 mg .ROUTE .ST-MED ONE Stop: 12/04/20 16:02 Last Admin: 12/04/20 16:14 Dose: Not Given Documented by: Sodium Chloride (Normal Saline) 1,000 mls @ 999 mls/hr IV ASDIRECTED [facility] Ceftriaxone Sodium 1 gm/ (Sodium Chloride) 50 mls @ 100 mls/hr IV ONETIME ONE Stop: 12/02/20 21:24 Last Admin: 12/02/20 22:17 Dose: 100 mls/hr Documented by: Sodium Chloride (Normal Saline) 1,000 mls @ 999 mls/hr IV ASDIRECTED [facility] Last Admin: 12/02/20 22:13 Dose: 999 mls/hr Documented by: Sodium Chloride (Normal Saline) 500 mls @ 999 mls/hr IV ASDIRECTED [facility] Sodium Chloride (Normal Saline) 1,000 mls @ 125 mls/hr IV ASDIRECTED [facility] Last Admin: 12/02/20 23:48 Dose: 125 mls/hr Documented by: Sodium Chloride (Normal Saline) 1,000 mls @ 50 mls/hr IV ASDIRECTED [facility] Last Admin: 12/03/20 21:44 Dose: 50 mls/hr Documented by: Pantoprazole Sodium (Pantoprazole 40 Mg Vial) 40 mg IV DAILY [facility] Last Admin: 12/03/20 08:02 Dose: 40 mg Documented by: Potassium Chloride (Potassium Chloride 20 Meq Tab.Er) 40 meq PO ONETIME ONE Stop: 12/03/20 08:16 Last Admin: 12/03/20 09:49 Dose: 40 meq Documented by: Potassium Chloride (Potassium Chloride 20 Meq Tab.Er) 40 meq PO ONETIME ONE Stop: 12/03/20 17:01 Last Admin: 12/03/20 18:00 Dose: 40 meq Documented by: - Exam General: Reports: Alert, Oriented, Cooperative, Moderate Distress Lungs: Reports: Clear to Auscultation, Normal Respiratory Effort Cardiovascular: Reports: Regular Rate, Regular Rhythm, No Murmurs GI/Abdominal Exam: Soft, Non-Tender, No Organomegaly, No Distention Extremities: Non-Tender, No Pedal Edema
== END 2020-12-05 12:06 | disposition home or self-care (01) | DRG 872 ==
LOC: JP.ED 18:08 → JP.ICU 21:29
PROVIDERS: ADMIT Hospitalist; ATTEND Hospitalist
DX: A41.9 Sepsis, unspecified organism (principal); A41.51 Sepsis due to Escherichia coli [E. coli]; N10 Acute pyelonephritis; K56.7 Ileus, unspecified; R65.20 Severe sepsis without septic shock; F03.90 Unspecified dementia, unspecified severity, without behavioral disturbance, psychotic disturbance, mood disturbance, and anxiety; K21.9 Gastro-esophageal reflux disease without esophagitis; Z20.822 Contact with and (suspected) exposure to COVID-19; E03.9 Hypothyroidism, unspecified; K80.20 Calculus of gallbladder without cholecystitis without obstruction; N20.0 Calculus of kidney; Z79.899 Other long term (current) drug therapy; Z88.0 Allergy status to penicillin; Z79.82 Long term (current) use of aspirin; Z79.890 Hormone replacement therapy
CPT/HCPCS: 36415; 74176; 83605; 87040; 87077; 87186; 99285; U0002; 80048; 80053; 83735; 84443; 85025; 86140; 94762; A9270-GY; C9113; J0696; J1630; J1650; J7030

== ENCOUNTER 2022-11-21 19:25 | Emergency (ER) | payer MEDICARE, BC ==
[2022-11-21] MEDS ORDERED: Sodium Chloride 0.9% 10 ML Syringe FLUSH PRN (20:20)
[2022-11-21 20:37] LABS: BASOPHILS ABSOLUTE AUTO 0.09 K/uL (0.00-0.10); BASOPHILS PERCENT AUTO 0.8 % (0.1-1.3); EOSINOPHILS ABSOLUTE AUTO 0.03 K/uL (0.00-0.40); EOSINOPHILS PERCENT AUTO 0.3 % (0.0-5.4); HEMATOCRIT 43.2 % (34.3-46.0); HEMOGLOBIN 14.2 g/dL (11.2-15.5); IMMATURE GRAN ABSOLUTE AUTO 0.03 K/uL (0.00-0.23); IMMATURE GRAN PERCENT AUTO 0.3 % (0.0-0.7); LYMPHOCYTES ABSOLUTE AUTO 2.27 K/uL (0.8-3.3); LYMPHOCYTES PERCENT AUTO 19.2 % (11.4-47.7); MEAN CORPUSCULAR HEMOGLOBIN 30.8 pg (31.6-35.5); MEAN CORPUSCULAR HGB CONC 32.9 g/dL (31.6-35.5); MEAN CORPUSCULAR VOLUME 93.7 fL (81.4-99.0); MONOCYTES ABSOLUTE AUTO 1.91 K/uL (0.20-0.90); MONOCYTES PERCENT AUTO 16.2 % (3.3-12.6); NEUTROPHILS ABSOLUTE AUTO 7.48 K/uL (1.0-7.6); NEUTROPHILS PERCENT AUTO 63.2 % (40.0-78.1); PLATELET COUNT,PLT 301 K/uL (130-375); RED BLOOD CELL COUNT 4.61 M/uL (3.77-5.24); WHITE BLOOD CELL COUNT,WBC 11.8 K/uL (3.2-11.0)
[2022-11-21 20:59] LABS: A/G RATIO 0.9 (1.2-2.2); ALANINE AMINOTRANSFERASE,ALT 18 U/L (12-78); ALBUMIN 3.6 g/dL (3.4-5.0); ALKALINE PHOSPHATASE 104 U/L (46-116); ASPARTATE AMNIOTRANSFERASE,AST 19 U/L (15-37); BILIRUBIN TOTAL 1.1 mg/dL (0.2-1.0); BLOOD UREA NITROGEN,BUN 10 mg/dL (7-18); CALCIUM 9.3 mg/dL (8.5-10.1); CARBON DIOXIDE,CO2 26 mmol/L (21-32); CHLORIDE,CL 101 mmol/L (100-108); EST CRCL DRUG DOSING (CG) 29.54 mL/min; ESTIMATED GFR 55 mL/min (>60); GLUCOSE RANDOM 95 mg/dL (74-106); POTASSIUM,K 3.9 mmol/L (3.6-5.2); PROTEIN TOTAL,TP 7.7 g/dL (6.4-8.2); SODIUM,NA 136 mmol/L (140-148)
[2022-11-21 21:00] LABS: ANION GAP 12.9 mmol/L (5.0-14.0)
[2022-11-21] MEDS: Sodium Chloride 0.9% 1,000 ML IV SCH (21:11)
[2022-11-21 22:08] LABS: APPEARANCE,URINE CLEAR (CLEAR); BILIRUBIN,URINE NEGATIVE (NEGATIVE); COLOR,URINE YELLOW (YELLOW); GLUCOSE,URINE NEGATIVE (NEGATIVE); KETONES,URINE NEGATIVE (NEGATIVE); LEUKOCYTE ESTERASE,URINE SMALL (NEGATIVE); NITRITE,URINE NEGATIVE (NEGATIVE); OCCULT BLOOD,URINE NEGATIVE (NEGATIVE); PROTEIN,URINE NEGATIVE (NEGATIVE); UROBILINOGEN,URINE 0.2 EU/dL (0.2-1.0)
[2022-11-21] MEDS ORDERED: Acetaminophen 325 MG Tab PO PRN (22:12)
[2022-11-21 22:14] LABS: AMORPHOUS SEDIMENT,URINE NOT SEEN; BACTERIA,URINE MODERATE; EPITHELIAL CELLS,URINE FEW; MUCUS,URINE NOT SEEN; RBC,URINE NOT SEEN (0-5); WBC,URINE 30-40 (0-5)
[2022-11-21] MEDS ORDERED: cefTRIAXone 1 GM in Sodium Chloride 0.9% 50 ML IV SCH (23:00)
[2022-11-22] MEDS ORDERED: Levothyroxine 50 MCG Tab PO SCH (07:30)
[2022-11-22] MEDS: Sodium Chloride 0.9% 1,000 ML IV SCH (09:54)
== END 2022-11-22 13:45 | disposition home or self-care (01) ==
LOC: JP.ED 19:25 → JP.MS 22:06
PROVIDERS: ADMIT Internal Medicine; ATTEND Internal Medicine
DX: E86.0 Dehydration (principal); F03.90 Unspecified dementia, unspecified severity, without behavioral disturbance, psychotic disturbance, mood disturbance, and anxiety; N30.00 Acute cystitis without hematuria; E03.9 Hypothyroidism, unspecified; Z88.0 Allergy status to penicillin; Z88.7 Allergy status to serum and vaccine; Z79.899 Other long term (current) drug therapy; Z20.822 Contact with and (suspected) exposure to COVID-19
CPT/HCPCS: 36415; 71045; 80053; 81001; 83605; 83735; 85025; 93005; 93010; 96360; 96361; 96365; 99284; 99285; A9270; G0378; J0696; J3490; J7030; U0002